=== PATIENT | female | born 1955 | race Caucasian/White ===

== ENCOUNTER 2018-03-06 09:40 | Emergency (ER) | payer OTHER ==
--- OUTSIDE RECORDS SUMMARY | 2018-03-06 09:43 | XMS REPORT | Clinical Summary ---
:1955 Author Organization [facility] Address [address] [place] [address] Care Team Providers Name Role Phone Barney Stanley MD Primary Care Provider Allergies Active Allergy Reactions Severity Noted Date Comments Iodinated Contrast- Oral And Rash Low 09/11/2016 Iv Dye Iodine Hives 06/19/2016 Cephalexin Hives, Shortness Of Breath High 06/19/2016 Latex Hives 09/11/2016 Levofloxacin Itching 10/09/2016 Penicillins Hives, Shortness Of Breath High 09/11/2016 Bupropion Hcl Itching 06/19/2016 Current Medications Prescription Sig. Disp. Refills Start Date End Date Status atorvastatin (LIPITOR) Take 20 mg by 05/24/2016 Active 20 MG tablet mouth nightly. CONTOUR NEXT STRIPS 06/19/2016 Active strip test strips CONTOUR NEXT EZ METER 06/19/2016 Active misc levothyroxine Take 75 mcg by Active (SYNTHROID, mouth every LEVOTHROID) 75 MCG morning. tablet aspirin (ECOTRIN) 81 Take 81 mg by Active MG enteric coated mouth daily. tablet furosemide (LASIX) 80 Take 20 mg by 08/03/2016 Active mg tablet mouth 2 (two) times a day. multivitamin with Take 1 tablet Active minerals tablet by mouth daily. CHOLECALCIFEROL, Take 1,000 mg Active VITAMIN D3, (VITAMIN by mouth daily. D3 ORAL) diphenhydrAMINE Take 25 mg by Active (BENADRYL) 25 mg mouth nightly tablet as needed for itching, allergies or sleep. INSULIN Inject 40 Units Active GLARGINE,HUM.REC.ANLOG under the skin (TOUJOSE PINTO SUBQ) daily. insulin lispro Inject 100 Active (HumaLOG) 100 unit/mL Units under the injection skin 3 (three) times a day before meals. folic acid (FOLVITE) 1 Take 1 mg by Active MG tablet mouth daily. ferrous sulfate 325 Take 325 mg by Active (65 FE) MG tablet mouth daily with breakfast. ondansetron (ZOFRAN) 8 Take 8 mg by Active MG tablet mouth every 8 (eight) hours as needed for nausea or vomiting. traMADol (ULTRAM) 50 Take 50 mg by Active mg tablet mouth every 6 (six) hours as needed for moderate pain. carvedilol (COREG) Take 6.25 mg by Active 6.25 MG tablet mouth 2 (two) times a day with meals. senna (SENOKOT) 8.6 mg Take 1 tablet 05/08/2017 Discontinued tablet by mouth daily. Active Problems Problem Noted Date Endometrial cancer 11/20/2016 Encounters Date Type Specialty Care Team Description 02/20/2018 Office Visit Gynecologic Oncology John Elizabeth MD History of endometrial cancer 10/24/2017 Office Visit Gynecologic Oncology John Elizabeth MD History of endometrial cancer 06/27/2017 Office Visit Gynecologic Oncology John Elizabeth MD Endometrial cancer 05/08/2017 Hospital Encounter General Surgery Wilmar Holguin Preoperative testing MD Mary 05/08/2017 Anesthesia Event General Surgery Roc Zuniga 05/08/2017 Procedure Pass General Surgery 05/08/2017 Surgery General Surgery Wilmar Holguin AVF CREATION MD Mary 04/30/2017 Hospital Encounter Radiology Wilmar Holguin MD 04/30/2017 Pre-Admit Testing Pre-Admission Wilmar Holguin Preoperative testing Appointment Testing MD Mary (Primary Dx) 04/30/2017 Ancillary Orders Pre-Admission Wilmar Holguin Preoperative testing Testing MD Mary after 03/05/2017 Family History Medical History Relation Name Comments Lung cancer Father Colon cancer Mother Heart disease Mother Relation Name Status Comments Father Mother Social History Tobacco Use Types Packs/Day Years Used Date Never Smoker Smokeless Tobacco: Never Used Alcohol Use Drinks/Week oz/Week Comments No Sex Assigned at Date Recorded Not on file Last Filed Vital Signs Vital Sign Reading Time Taken Blood Pressure 175/75 02/20/2018 11:39 AM CDT Pulse 84 02/20/2018 11:39 AM CDT Temperature 36.6 C (97.8 F) 05/08/2017 7:00 PM CDT Respiratory Rate 16 05/08/2017 7:10 PM CDT Oxygen Saturation 95% 05/08/2017 7:10 PM CDT Inhaled Oxygen Concentration - - Weight 145 kg (320 lb) 02/20/2018 11:39 AM CDT Height 162.6 cm (5' 4") 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 Body Mass Index 54.93 02/20/2018 11:39 AM CDT Plan of Treatment Date Type Specialty Care Team Description 07/24/2018 Office Visit Gynecologic Oncology John Elizabeth MD [address] [address] Health Maintenance Due Date Last Done Comments CERVICAL CANCER SCREENING 1974 BREAST CANCER SCREENING 2003 COLON CANCER SCREENING 2003 SHINGRIX VACCINE (#1) 2003 ZOSTER VACCINE 2013 PNEUMOCOCCAL POLYSACCHARIDE VACCINE AGE 65 AND OVER 2018 PNEUMOCOCCAL-13 2018 INFLUENZA VACCINE 05/01/2018 Implants Implanted Type Area Fur Dressing Supervisor Device Expiration Model / Identifier Date Serial / Lot Hemostat Absrbl 4x4in Surgicel Snow - [id number] Cardiovascular N/A: ETHICON US-EH 08/30/2018 208 / Implanted: 11/23/2016 (Quantity not on file) Implants N/A / [id number] Fibrin Sealant Patch Evarrest - [id number] Surgical N/A: ETHICON 2017 [id number] / Implanted: 11/24/2016 (Quantity not on file) Implants; N/A ENDO-SURGERY / Expanders; [id number] Extenders; Surgical Wires Procedures Procedure Name Priority Date/Time Associated Diagnosis Comments MD AN ELECTIVE Routine 05/08/2017 3:38 PM SUPRAGLOTTIC AIRWAY CDT Procedure Note - Roc Zuniga - 05/08/2017 3:38 PM CDT Airway Date/Time: 05/08/2017 3:18 PM Performed by: AKASH VASQUEZ Authorized by: AKASH VASQUEZ Location: OR Urgency: Elective Difficult Airway: No Anesthesiologist: AKASH VASQUEZ Other Anesthesia Staff: ROC ZUNIGA Performed by: other anesthesia staff Preoxygenated with 100% O2: Yes C-spine Precautions Maintained Throughout: Yes Final Airway Type: Supraglottic airway Final LMA: Unique LMA Size: 4 Number of Attempts at Approach: 1 LUE AVF CREATION 05/08/2017 3:00 PM CDT ESRD N18.5 Special Needs LATEX ALLERGY, after 03/05/2017 Results POC glucose (05/08/2017 6:55 PM) Component Value Ref Range POC glucose 133 (H) 65 - 99 mg/dL Comment: Meter ID: [id number] Rn Telephone Triage: Joann Muniz Specimen Performing Laboratory [facility] DEPARTMENT PATHOLOGY AND [facility] MEDICINE [id number] [place] [address] [place] [address] Type and screen (05/08/2017 12:11 PM) Component Value Ref Range ABO grouping O Rh type POS Antibody screen NEG Specimen Performing Laboratory Blood [facility] PATHOLOGY AND [address] [place] [address] Potassium level (05/08/2017 12:10 PM) Component Value Ref Range Potassium 4.9 3.5 - 5.0 mEq/L Specimen Performing Laboratory Plasma specimen [facility] PATHOLOGY AND [address] [place] [address] XR Chest 2 Vw (04/30/2017 3:00 PM) Specimen Performing Laboratory [facility] [address] [place] [address] Narrative EXAMINATION:XR CHEST 2 VW CLINICAL HISTORY:Z01.818 Encounter for other preprocedural examination, preop COMPARISON:September 11, 2016 LUNGS: Heart size is borderline but within normal limits. The mediastinum appears unremarkable. Pronounced hypertrophic changes of the spine are present. IMPRESSION: No acute findings are visualized. [id number] Procedure Note Hm Interface, Radiology Results Incoming - 04/30/2017 3:54 PM CDT EXAMINATION: XR CHEST 2 VW CLINICAL HISTORY: Z01.818 Encounter for other preprocedural examination, preop COMPARISON: September 11, 2016 LUNGS: Heart size is borderline but within normal limits. The mediastinum appears unremarkable. Pronounced hypertrophic changes of the spine are present. IMPRESSION: No acute findings are visualized. [id number] ECG 12 lead (04/30/2017 2:00 PM) Component Value Ref Range Ventricular rate 81 Atrial rate 81 MD interval 162 QRSD interval 106 QT interval 414 QTC interval 480 P axis 1 67 QRS axis 1 -4 T wave axis 22 EKG impression Normal sinus rhythm-Incomplete right bundle branch block-Borderline ECG-In automated comparison with ECG of 11-SEP-2016 17:19,-No significant change was found- Specimen Performing Laboratory [facility] [address] [place] [address] Estimated GFR (04/30/2017 1:19 PM) Component Value Ref Range GFR Non Af Amer 11 (A) mL/min/1.73 m2 GFR Af Amer 13 (A) mL/min/1.73 m2 Comment: Chronic kidney disease: <60 mL/min/1.73m2 Kidney failure: <15 mL/min/1.73m2 The estimated GFR is calculated from the IDMS-traceable Modification of Diet in Renal Disease Equation. The accuracy of the calculation is poor when the creatinine is normal. Calculated values >90 mL/min/1.73m2 are not reported. This equation has not been validated in children (<18 years), women, the elderly (>70 years), or ethnic groups other than Caucasians and Americans. Specimen Performing Laboratory Plasma specimen [facility] DEPARTMENT OF PATHOLOGY AND [facility] [id number] [place] [address] [place] [address] Partial thromboplastin time, activated (04/30/2017 1:19 PM) Component Value Ref Range PTT 28.0 23.0 - 36.0 sec Comment: PTT therapeutic range for unfractionated heparin is 61.0-112.0 seconds which corresponds to Anti-Xa 0.3-0.7 U/ml. Specimen Performing Laboratory Blood [facility] DEPARTMENT OF PATHOLOGY AND [facility] [id number] [place] [address] [place] [address] Prothrombin time with INR (04/30/2017 1:19 PM) Component Value Ref Range Prothrombin time 12.5 12.0 - 15.0 sec INR 0.9 Comment: The International Normalized Ratio (INR) is a therapeutic monitoring tool for patients who are stable on oral anticoagulant therapy. An INR of 2.0-3.0 is suggested for deep vein thrombosis/pulmonary embolism. Specimen Performing Laboratory Blood [facility] DEPARTMENT PATHOLOGY AND [facility] [id number] [place] [address] [place] [address] CBC with platelet and differential (04/30/2017 1:19 PM) Component Value Ref Range WBC 10.46 4.50 - 11.00 k/uL RBC 3.89 (L) 4.20 - 5.50 m/uL HGB 11.7 (L) 12.0 - 16.0 g/dL HCT 36.4 (L) 37.0 - 47.0 % MCV 93.6 82.0 - 100.0 fL MCH 30.1 27.0 - 34.0 pg MCHC 32.1 31.0 - 37.0 g/dL RDW - SD 46.9 37.0 - 55.0 fL MPV 12.9 8.8 - 13.2 fL Platelet count 215 150 - 400 k/uL Nucleated RBC 0.00 /100 WBC Neutrophils 67.3 39.0 - 69.0 % Lymphocytes 23.6 (L) 25.0 - 45.0 % Monocytes 5.9 0.0 - 10.0 % Eosinophils 2.0 0.0 - 5.0 % Basophils 0.7 0.0 - 1.0 % Immature granulocytes 0.5Comment: "Immature granulocytes" 0.0 - 1.0 % (promyelocytes, myelocytes, metamyelocytes) Specimen Performing Laboratory Blood [facility] DEPARTMENT OF PATHOLOGY AND GENOMIC MEDICINE [address] [place] [address] Basic metabolic panel (04/30/2017 1:19 PM) Component Value Ref Range Sodium 140 135 - 148 mEq/L Potassium 4.1 3.5 - 5.0 mEq/L Chloride 94 (L) 98 - 112 mEq/L CO2 32 (H) 24 - 31 mEq/L Anion gap 14 7 - 15 mEq/L Comment: Starting from December , anion gap calculation no longer incorporates potassium. Please note the change. BUN 75 (H) 8 - 23 mg/dL Creatinine 4.1 (H) 0.5 - 0.9 mg/dL Glucose 155 (H) 65 - 99 mg/dL Calcium 10.1 8.8 - 10.2 mg/dL Specimen Performing Laboratory Plasma specimen [facility] DEPARTMENT OF PATHOLOGY AND [facility] [address] [place] [address] after 03/05/2017 Insurance Payer Benefit Plan / Group Subscriber ID Type Phone Address [facility] O Home: [address] [facility] y [phone] [place], [address] [place] [phone]
--- NOTE | 2018-03-06 11:41 | ER ---
Nurse's Notes [facility] Name: Melissa Doherty Age: 63 yrs Sex: Female : 1955 Arrival Date: 03/06/2018 Time: 09:42 Bed 13 Private MD: Barney Stanley E Diagnosis: Urticaria, unspecified Presentation: 03/06 10:00 Presenting complaint: Patient states: Rash all over body that started on Sunday. ss Patient reports rash is itchy and denies any changes in soap or medication. Patient denies SOB. In NAD at this time. Able to speak clearly with no tachypnea. Transition of care: patient was not received from another setting of care. Onset of symptoms was March 06, 2018. Risk Assessment: Do you want to hurt yourself or someone else? Patient reports no desire to harm self or others. Care prior to arrival: None. 10:00 Method Of Arrival: Ambulatory ss 10:00 Acuity: FRANKLIN 3 ss 11:00 Initial Sepsis Screen: Does the patient meet any 2 criteria? No. Patient's initial sg sepsis screen is negative. Does the patient have a suspected source of infection? No. Patient's initial sepsis screen is negative. Triage Assessment: 10:02 General: Appears in no apparent distress. comfortable, Behavior is calm, cooperative, ss appropriate for age. Pain: Denies pain. Neuro: Level of Consciousness is awake, alert, obeys commands, Oriented to person, place, time, situation, Appropriate for age. Respiratory: Airway is patent Respiratory effort is even, unlabored, Respiratory pattern is regular, symmetrical. Derm: Skin is intact, is healthy with good turgor, Skin is pink, warm \T\ dry. normal, Rash noted that is itchy, red, on abdomen, right arm, left arm, right leg and left leg. Historical: - Allergies: 10:02 Iodinated Contrast Media - IV Dye; ss 10:02 Iodine; ss 10:02 PENICILLINS; ss - Home Meds: 10:02 Aspirin EC 81 mg every other day Oral [Active]; Coreg 6.25 mg Oral tab 1 tab every 12 ss hours [Active]; Flonase Nasal [Active]; humalog 20 units [Active]; Lipitor 20 mg Oral tab 1 tab once daily [Active]; Synthroid 75 mcg Oral tab 1 tab once daily [Active]; toujeo 50 units at bedtime [Active]; - PMHx: 10:02 Diabetes - IDDM; ESRD; Hypertension; Hypothyroidism; ss - PSHx: 10:02 Cholecystectomy; ; ANKLE RECONSTRUCTION; LEFT KNEE; Tonsillectomy; Adenoids; ss Appendectomy; DIALYSIS CATHETER; - Immunization history:: Adult Immunizations up to date. - Social history:: Smoking status: Patient/guardian denies using tobacco. - Ebola Screening: : Patient negative for fever greater than or equal to 101.5 degrees Fahrenheit, and additional compatible Ebola Virus Disease symptoms Patient denies exposure to infectious person Patient denies travel to an Ebola-affected area in the 21 days before illness onset No symptoms or risks identified at this time. Screenin:00 Abuse screen: Denies threats or abuse. Denies injuries from another. Nutritional sg screening: No deficits noted. Tuberculosis screening: No symptoms or risk factors identified. Never had TB. Fall Risk None identified. Assessment: 11:00 General: Appears in no apparent distress. comfortable, well groomed, well developed, sg well nourished, Behavior is calm, cooperative, appropriate for age. Pain: Denies pain. Neuro: No deficits noted. Cardiovascular: Heart tones S1 S2 present Capillary refill is brisk in bilateral fingers Chest pain is denied. Respiratory: No deficits noted. GI: No deficits noted. GI: No signs and/or symptoms were reported involving the gastrointestinal system. : No deficits noted. No signs and/or symptoms were reported regarding the genitourinary system. EENT: No signs and/or symptoms were reported regarding the EENT system. Derm: Skin is pink, warm \T\ dry. Rash noted that is red, raised, on right leg and left arm and right arm and abdomen and left leg. Musculoskeletal: No signs and/or symptoms reported regarding the musculoskeletal system. Vital Signs: 10:02 BP 154 / 45; Pulse 89; Resp 19; Temp 97.7; Pulse Ox 91% on R/A; Weight 145.15 kg; ss Height 5 ft. 5 in. (165.10 cm); 10:02 Body Mass Index 53.25 (145.15 kg, 165.10 cm) ED Course: 09:42 Patient arrived in ED. as 09:45 Barney Stanley MD is Private Physician. as 10:01 Triage completed. ss 10:02 Arm band placed on right wrist. Patient placed in waiting room, Patient notified of ss wait time. 10:43 Dmitriy Rodriguez PA is PHCP. cp 10:43 Hola Patel MD is Attending Physician. cp 10:45 Nicholas Miles, RN is Primary Nurse. sg 11:00 Patient has correct armband on for positive identification. Bed in low position. Call sg light in reach. Side rails up X2. Pulse ox on. NIBP on. 11:00 No provider procedures requiring assistance completed. Patient did not have IV access sg during this emergency room visit. 11:37 Barney Stanley MD is Referral Physician. cp Administered Medications: 11:50 Drug: Pepcid 20 mg Route: PO; sg 12:01 Drug: Benadryl 50 mg Route: PO; sg Point of Care Testing: Blood Glucose: 11:13 Blood Glucose: 218 mg/dL; sg Ranges: Outcome: 11:40 Discharge ordered by MD. cp 11:50 Discharged to home via wheelchair, with family. sg 11:50 Condition: good 11:50 Discharge instructions given to patient, Instructed on discharge instructions, follow up and referral plans. medication usage, safety practices, Demonstrated understanding of instructions, follow-up care, medications, Prescriptions given X 2. 12:01 Patient left the ED. sg Signatures: Nicholas Miles, RN RN Nilsa Dickinson Shelby, RN RN Dmitriy Rodriguez PA PA cp Corrections: (The following items were deleted from the chart) 10:04 10:00 Presenting complaint: Patient states: Rash all over body that started on Sunday. ss Patient reports rash is itchy and denies any changes in soap or medication ss
--- NOTE | 2018-03-06 11:41 | EDPHYS ---
Physician Documentation [facility] Name: Melissa Doherty Age: 63 yrs Sex: Female : 1955 Arrival Date: 03/06/2018 Time: 09:42 Bed 13 Private MD: Barney Stanley E ED Physician Hola Patel HPI: 03/06 10:50 This 63 yrs old Female presents to ER via Ambulatory with complaints of Rash. cp 10:50 The patient's rash thought to be caused by an unknown cause. The rash is located on the cp body diffusely. The rash can be described as papular, urticarial. Onset: The symptoms/episode began/occurred 2 day(s) ago. Associated signs and symptoms: Pertinent positives: burning sensation, itching, Pertinent negatives: difficulty breathing, fever, swelling of lips, swelling of throat, swelling of tongue, wheezing. Severity of symptoms: in the emergency department the symptoms are unchanged despite home interventions. Treatment given at home: Benadryl. The patient has not experienced similar symptoms in the past. Historical: - Allergies: 10:02 Iodinated Contrast Media - IV Dye; ss 10:02 Iodine; ss 10:02 PENICILLINS; ss - Home Meds: 10:02 Aspirin EC 81 mg every other day Oral [Active]; Coreg 6.25 mg Oral tab 1 tab every 12 ss hours [Active]; Flonase Nasal [Active]; humalog 20 units [Active]; Lipitor 20 mg Oral tab 1 tab once daily [Active]; Synthroid 75 mcg Oral tab 1 tab once daily [Active]; toujeo 50 units at bedtime [Active]; - PMHx: 10:02 Diabetes - IDDM; ESRD; Hypertension; Hypothyroidism; ss - PSHx: 10:02 Cholecystectomy; ; ANKLE RECONSTRUCTION; LEFT KNEE; Tonsillectomy; Adenoids; ss Appendectomy; DIALYSIS CATHETER; - Immunization history:: Adult Immunizations up to date. - Social history:: Smoking status: Patient/guardian denies using tobacco. - Ebola Screening: : Patient negative for fever greater than or equal to 101.5 degrees Fahrenheit, and additional compatible Ebola Virus Disease symptoms Patient denies exposure to infectious person Patient denies travel to an Ebola-affected area in the 21 days before illness onset No symptoms or risks identified at this time. ROS: 11:00 Constitutional: Negative for body aches, chills, fever, poor PO intake. cp 11:00 Eyes: Negative for injury, pain, redness, and discharge. cp 11:00 ENT: Negative for drainage from ear(s), ear pain, sore throat, difficulty swallowing, difficulty handling secretions. 11:00 Cardiovascular: Negative for chest pain, edema, palpitations. 11:00 Respiratory: Negative for cough, shortness of breath, wheezing. 11:00 Abdomen/GI: Negative for abdominal pain, nausea, vomiting, and diarrhea, constipation, black/tarry stool, rectal bleeding. 11:00 Skin: Positive for rash, diffusely. 11:00 Neuro: Negative for altered mental status, headache, weakness. 11:00 All other systems are negative. Exam: 11:03 Constitutional: The patient appears in no acute distress, alert, awake, cp non-diaphoretic, non-toxic, well developed, well nourished, obese. 11:03 Head/Face: Normocephalic, atraumatic. cp 11:03 Eyes: Periorbital structures: appear normal, Conjunctiva: normal, no exudate, no injection, Sclera: no appreciated abnormality, Lids and lashes: appear normal, bilaterally. 11:03 ENT: External ear(s): are unremarkable, Ear canal(s): are normal, clear, TM's: bulging, is not appreciated, bilaterally, dullness, bilaterally, erythema, is not appreciated, bilaterally, Nose: is normal, Mouth: Lips: moist, Oral mucosa: pink and intact, moist, Posterior pharynx: is normal, airway is patent, no erythema, no exudate, Voice: is normal. 11:03 Neck: ROM/movement: is normal, is supple, no meningismus, no nuchal rigidity, Lymph nodes: no appreciated lymphadenopathy. 11:03 Chest/axilla: Palpation: is normal, no crepitus, no tenderness. 11:03 Cardiovascular: Rate: normal, Edema: is not appreciated, JVD: is not appreciated. 11:03 Respiratory: the patient does not display signs of respiratory distress, Respirations: normal, no use of accessory muscles, no retractions, no splinting, no tachypnea, Breath sounds: are clear throughout, no decreased breath sounds, no stridor, no wheezing. 11:03 Abdomen/GI: Exam negative for discomfort, distension, guarding, Inspection: obese 11:03 Skin: abscess, not appreciated, cellulitis, is not appreciated, rash a moderate rash is noted, rash can be described as papular, raised, urticarial, on the back and upper armpits and bilateral upper and lower extremities. 11:03 Neuro: Orientation: to person, place \T\ time. Mentation: lucid, able to follow commands. Vital Signs: 10:02 BP 154 / 45; Pulse 89; Resp 19; Temp 97.7; Pulse Ox 91% on R/A; Weight 145.15 kg; ss Height 5 ft. 5 in. (165.10 cm); 10:02 Body Mass Index 53.25 (145.15 kg, 165.10 cm) ss MDM: 10:45 Patient medically screened. cp 11:05 Differential diagnosis: impetigo, varicella, allergic reaction, parasite infection, cp cellulitis. 11:38 Data reviewed: vital signs, nurses notes, and as a result, I will discharge patient. cp 11:38 Counseling: I had a detailed discussion with the patient and/or guardian regarding: the cp historical points, exam findings, and any diagnostic results supporting the discharge/admit diagnosis, the need for outpatient follow up, a family practitioner, to return to the emergency department if symptoms worsen or persist or if there are any questions or concerns that arise at home. Response to treatment: the patient's symptoms have mildly improved after treatment, and as a result, I will discharge patient. 03/06 10:57 Order name: Accucheck Blood Glucose; Complete Time: 11:13 cp Administered Medications: 11:50 Drug: Pepcid 20 mg Route: PO; sg 12:01 Drug: Benadryl 50 mg Route: PO; sg Point of Care Testing: Blood Glucose: 11:13 Blood Glucose: 218 mg/dL; sg Ranges: Critical Glucose Levels:Adult <50 mg/dl or >400 mg/dl <40 mg/dl or >180 mg/dl Disposition: 16:19 Co-signature as Attending Physician, Hola Patel MD. rn Disposition: 03/06/18 11:40 Discharged to Home. Impression: Urticaria, unspecified. - Condition is Stable. - Discharge Instructions: Hives. - Prescriptions for Pepcid 20 mg Oral Tablet - take 1 tablet by ORAL route every 12 hours for 5 days; 10 tablet. Triamcinolone Acetonide 0.5 % Topical Cream - apply 1 application by TOPICAL route 2 times per day for 1 week apply to areas of rash except face as directed; 1 tube. Medrol (Hugo) 4 mg Oral Tablets, Dose Pack - take 1 tablet by ORAL route as directed - follow package instructions; 1 packet. - Medication Reconciliation Form, Thank You Letter, Antibiotic Education, Prescription Opioid Use form. - Follow up: Barney Stanley MD; When: 1 - 2 days; Reason: Recheck today's complaints. - Problem is new. - Symptoms have improved. Signatures: Nicholas Miles RN RN sg Hola Patel MD MD rn Smirch, Shelby, RN RN ss Dmitriy Rodriguez PA PA cp Corrections: (The following items were deleted from the chart) 11:01 10:59 ED course: VSS. Pain markedly improved. Patient observed communicating on cell cp phone and in no acute distress. Reexamination of abdomen, no tenderness to palpation noted. cp 12:01 11:40 03/06/2018 11:40 Discharged to Home. Impression: Urticaria, unspecified. sg Condition is Stable. Forms are Medication Reconciliation Form, Thank You Letter, Antibiotic Education, Prescription Opioid Use. Follow up: Barney Stanley; When: 1 - 2 days; Reason: Recheck today's complaints. Problem is new. Symptoms have improved. cp
[2018-03-06] MEDS ORDERED: FAMOTIDINE 20 MG TAB ONE (11:55)
[2018-03-06] MEDS ORDERED: DIPHENHYDRAMINE 25 MG TAB/CAP ONE (11:55)
== END 2018-03-06 12:01 | disposition home or self-care (01) ==
LOC: ER 09:40
DX: L50.9 Urticaria, unspecified (principal); E03.9 Hypothyroidism, unspecified; I12.0 Hypertensive chronic kidney disease with stage 5 chronic kidney disease or end stage renal disease; E11.22 Type 2 diabetes mellitus with diabetic chronic kidney disease; N18.6 End stage renal disease; Z99.2 Dependence on renal dialysis; Z79.4 Long term (current) use of insulin
CPT/HCPCS: 82962; 99283

== ENCOUNTER 2021-04-02 22:35 | Emergency (ER) | payer OTHER, SELFPAY ==
--- OUTSIDE RECORDS SUMMARY | 2021-04-02 22:43 | XMS REPORT | Continuity of Care Document ---
:1955 Author Organization [facility] Address [address] [place] [address] [address] [place] [address] Care Team Providers Name Role Phone FARACH Attending Clinician Unavailable JAY Attending Clinician Unavailable KARISSA Attending Clinician Unavailable Problems This patient has no known problems. Allergies, Adverse Reactions, Alerts This patient has no known allergies or adverse reactions. Medications This patient has no known medications. Procedures This patient has no known procedures. Encounters Start End Encounter Admission Attending Care Care Encounter Source Date/Time Date/Time Type Type Clinicians Facility Department ID 2020-03-01 2020-03-02 Outpatient [facility] [id number] [address] [place] [address] 00:00:00 00:00:00 MENDEZ [address] 2020-03-01 2020-03-02 Outpatient [facility] [id number] [address] [place] 00:00:00 00:00:00 MENDEZ [address] 2020-03-01 2020-03-01 Outpatient [facility] [id number] [address] [place] 00:00:00 00:00:00 MENDEZ [address] 2020-03-01 2020-03-01 Outpatient [facility] [id number] [address] [place] 00:00:00 00:00:00 MENDEZ [address] 2020-03-01 2020-03-01 Outpatient [facility] [id number] [address] [place] 00:00:00 00:00:00 MENDEZ [address] 2020-02-27 2020-02-28 Outpatient [facility] [id number] 0[address] [place] 00:00:00 00:00:00 MENDEZ [address] 2020-02-27 2020-02-27 Outpatient [facility] [id number] [address] [place] 00:00:00 00:00:00 MENDEZ [address] 2020-02-25 2020-02-25 Outpatient FARACH, [facility] [id number] [address] [place] 00:00:00 00:00:00 MENDEZ [address] 2020-02-25 2020-02-25 Outpatient FARACH, [facility] [id number] 0[address] [place] 00:00:00 00:00:00 MENDEZ [address] 2020-02-20 2020-02-20 Outpatient FARACH, [facility] [id number] 0[address] [place] 00:00:00 00:00:00 MENDEZ [address] 2020-02-20 2020-02-20 Outpatient JAY, [facility] [id number] 0[address] [place] 00:00:00 00:00:00 OLIVER [address] 2020-02-18 2020-02-18 Outpatient FARACH, [facility] [id number] 0[address] [place] 00:00:00 00:00:00 MENDEZ [address] 2020-02-18 2020-02-18 Outpatient FARACH, [facility] [id number] 0[address] [place] 00:00:00 00:00:00 MENDEZ [address] [facility] 2020-02-16 2020-02-16 Outpatient [facility] [id number] [address] [place] 00:00:00 00:00:[address] 2020-02-13 2020-02-13 Outpatient [facility] [id number] [address] [place] 00:00:00 00:00:[address] 2020-02-12 2020-02-12 Outpatient [facility] [id number] [address] [place] 00:00:00 00:00:[address] 2020-02-12 2020-02-12 Outpatient FARACH, [facility] [id number] [address] [place] 00:00:00 00:00:00 MENDEZ [address] 2020-02-12 2020-02-12 Outpatient FARACH, [facility] [id number] 057 [place] 00:00:00 00:00:00 MENDEZ [address] 2020-02-11 2020-02-11 Outpatient [facility] [id number] [address] [place] 00:00:00 00:00:[address] 2020-02-10 2020-02-10 Outpatient [facility] [id number] [address] [place] 00:00:00 00:00:[address] 2020-02-10 2020-02-10 Outpatient FARACH, [facility] [id number] [address] [place] 00:00:00 00:00:00 MENDEZ [address] 2020-02-05 2020-02-05 Outpatient FARACH, [facility] [id number] [address] [place] 00:00:00 00:00:00 MENDEZ [address] [facility] 2020-02-04 2020-02-04 Outpatient [facility] [id number] [address] [place] 00:00:00 00:00:[address] 2020-02-03 2020-02-03 Outpatient [facility] [id number] [address] [place] 00:00:00 00:00:[address] 2020-02-02 2020-02-02 Outpatient [facility] [id number] [address] [place] 00:00:00 00:00:[address] 2020-01-30 2020-01-31 Outpatient FARACH, [facility] [id number] [address] [place] 00:00:00 00:00:00 MENDEZ [address] 2020-01-30 2020-01-30 Outpatient [facility] [id number] [address] [place] 00:00:00 00:00:[address] 2020-01-29 2020-01-29 Outpatient [facility] [id number] [address] [place] 00:00:00 00:00:[address] 2020-01-29 2020-01-29 Outpatient STEPHIEACH, [facility] [id number] [address] [place] 00:00:00 00:00:00 MENDEZ [address] 2020-01-28 2020-01-28 Outpatient [facility] [id number] [address] [place] 00:00:00 00:00:[address] 2020-01-27 2020-01-27 Outpatient [facility] [id number] [address] [place] 00:00:00 00:00:[address] 2020-01-23 2020-01-23 Outpatient [facility] [id number] [address] [place] 00:00:00 00:00:[address] 2020-01-22 2020-01-23 Outpatient FARACH, [facility] [id number] [place] 00:00:00 00:00:00 MENDEZ [address] 2020-01-22 2020-01-22 Outpatient STEPHIEACH, [facility] [id number] [address] [place] 00:00:00 00:00:00 MENDEZ [address] [facility] 2020-01-21 2020-01-21 Outpatient [facility] [id number] [address] [place] 00:00:00 00:00:[address] 2020-01-20 2020-01-20 Outpatient [facility] [id number] [address] [place] 00:00:00 00:00:[address] 2020-01-19 2020-01-19 Outpatient [facility] [id number] [address] [place] 00:00:00 00:00:[address] 2020-01-16 2020-01-16 Outpatient [facility] [id number] [address] [place] 00:00:00 00:00:[address] 2020-01-15 2020-01-15 Outpatient [facility] [id number] [address] [place] 00:00:00 00:00:[address] 2020-01-15 2020-01-15 Outpatient FARACH, [facility] [id number] [address] [place] 00:00:00 00:00:00 MENDEZ [address] 2020-01-14 2020-01-14 Outpatient [facility] [id number] [address] [place] 00:00:00 00:00:[address] 2020-01-13 2020-01-13 Outpatient FARACH, [facility] [id number] [address] [place] 00:00:00 00:00:00 MENDEZ [address] 2020-01-01 2020-01-01 Outpatient FARACH, [facility] [id number] [place] 00:00:00 00:00:00 MENDEZ [address] 2019-12-31 2019-12-31 Outpatient FARACH, [facility] [id number] [address] [place] 00:00:00 00:00:00 MENDEZ [address] 2019-12-22 2019-12-22 Outpatient FARACH, [facility] [id number] [address] [place] 00:00:00 00:00:00 MENDEZ [address] 2019-12-22 2019-12-22 Outpatient FARACH, [facility] [id number] [address] [place] 00:00:00 00:00:00 MENDEZ [address] 2019-12-22 2019-12-22 Outpatient FARACH, [facility] [id number] [address] [place] 00:00:00 00:00:00 MENDEZ [address] 2019-12-16 2019-12-16 Outpatient KARISSA, ALEXA [facility] [id number] [place] 00:00:00 00:00:[address] 2019-11-24 2019-11-24 Outpatient ALEXA HANCOCK [facility] [id number] [place] 00:00:00 00:00:[address] Results This patient has no known results.
[2021-04-03 00:08] LABS: Absolute Lymphocytes (CBC) 0.3 K/uL (0.7-4.9); Basophils % 0.1 % (0-1.3)
[2021-04-03 00:17] LABS: Hematocrit 30.1 % (36.0-45.0); Lymphocytes % 1.1 % (15.3-44.8); MPV 8.9 fL (7.6-11.3); RBC Red Blood Cell Count 3.07 M/uL (3.86-4.86)
[2021-04-03] MEDS ORDERED: NA CHLORIDE 0.9% 2,000 ML ONE (00:18)
[2021-04-03] MEDS ORDERED: ONDANSETRON 4 MG/2 ML VIAL ONE (00:18)
[2021-04-03 00:37] LABS: Anisocytosis 2+; Blood Morphology Comment NOTED (NOT SEEN); Hypochromasia 1+; Macrocytosis 1+; Platelet Estimate INCR; Platelets, Giant FEW; Polychromasia 1+
[2021-04-03 00:45] LABS: Albumin 2.6 g/dL (3.4-5.0); Bilirubin Direct 0.3 mg/dL (0-0.2); Bilirubin Total 0.6 mg/dL (0.2-1.0); Potassium 3.9 mmol/L (3.5-5.1); Protein, Total 6.9 g/dL (6.4-8.2)
[2021-04-03] MEDS ORDERED: PROMETHAZINE INJ 25 MG/ML AMP ONE (01:13)
[2021-04-03] MEDS ORDERED: METRONIDAZOLE 500mg IVPB 500 MG/100 ML BAG IV ONE (04:18)
[2021-04-03] MEDS ORDERED: FENTANYL CITR 100 MCG/2 ML ONE (04:38)
--- NOTE | 2021-04-03 05:49 | EDPHYS ---
Physician Documentation [facility] Name: Melissa Doherty Age: 66 yrs Sex: Female : 1955 Arrival Date: 04/02/2021 Time: 22:47 Bed 20 Private MD: ED Physician Pato Ramirez HPI: 04/03 02:49 This 66 yrs old Female presents to ER via EMS with complaints of Abdominal pkl Pain. 02:49 The patient presents with abdominal pain that is diffuse. Onset: The symptoms/episode pkl began/occurred 2 week(s) ago, and became worse today. Associated signs and symptoms: Pertinent positives: nausea and vomiting. Historical: - Allergies: 04/02 23:00 Iodinated Contrast Media - IV Dye; zb 23:00 Iodine; zb 23:00 PENICILLINS; zb 04/03 04:02 Keflex; em 04:02 Levaquin; em - Home Meds: 04/02 23:00 aspirin 81 mg oral cpDR [Active]; Coreg 6.25 mg Oral tab 1 tab every 12 hours [Active]; zb Flonase Nasal [Active]; humalog 20 units [Active]; Lipitor 20 mg Oral tab 1 tab once daily [Active]; Synthroid 75 mcg Oral tab 1 tab once daily [Active]; toujeo 50 units at bedtime [Active]; - PMHx: 23:00 Diabetes - IDDM; ESRD; Hypertension; Hypothyroidism; zb - PSHx: 23:00 Tonsillectomy; Appendectomy; Total abdominal hysterectomy; Cholecystectomy; zb - Immunization history:: Adult Immunizations up to date, Client reports receiving the 2nd dose of the Covid vaccine. - Social history:: Smoking status: Patient denies any tobacco usage or history of. ROS: 04/03 02:49 Eyes: Negative for injury, pain, redness, and discharge, ENT: Negative for injury, pkl pain, and discharge, Neck: Negative for injury, pain, and swelling, Cardiovascular: Negative for chest pain, palpitations, and edema, Respiratory: Negative for shortness of breath, cough, wheezing, and pleuritic chest pain. Abdomen/GI: Positive for abdominal pain, nausea and vomiting, of the right upper quadrant, left upper quadrant, right lower quadrant and left lower quadrant. Back: Negative for acute changes. : Negative for urinary symptoms. MS/extremity: Negative for acute changes. Skin: Negative for rash. Neuro: Negative for altered mental status, loss of consciousness. Exam: 02:49 Head/Face: Normocephalic, atraumatic. Eyes: Pupils equal round and reactive to light, pkl extra-ocular motions intact. Lids and lashes normal. Conjunctiva and sclera are non-icteric and not injected. Cornea within normal limits. Periorbital areas with no swelling, redness, or edema. ENT: Nares patent. No nasal discharge, no septal abnormalities noted. Tympanic membranes are normal and external auditory canals are clear. Oropharynx with no redness, swelling, or masses, exudates, or evidence of obstruction, uvula midline. Mucous membranes moist. Neck: Trachea midline, no thyromegaly or masses palpated, and no cervical lymphadenopathy. Supple, full range of motion without nuchal rigidity, or vertebral point tenderness. No Meningismus. Chest/axilla: Normal chest wall appearance and motion. Nontender with no deformity. No lesions are appreciated. Cardiovascular: Regular rate and rhythm with a normal S1 and S2. No gallops, murmurs, or rubs. Normal PMI, no JVD. No pulse deficits. Respiratory: Lungs have equal breath sounds bilaterally, clear to auscultation and percussion. No rales, rhonchi or wheezes noted. No increased work of breathing, no retractions or nasal flaring. 02:49 Abdomen/GI: Bowel sounds: normal, Palpation: moderate abdominal tenderness, in the right upper quadrant, left upper quadrant, right lower quadrant and left lower quadrant. 02:49 Back: Exam negative for acute changes. 02:49 : Exam negative for acute changes. 02:49 Musculoskeletal/extremity: Exam is negative for acute changes. 02:49 Skin: Exam negative for rash. 02:49 Neuro: Orientation: is normal, Mentation: is normal, Cranial nerves: grossly normal, Motor: is normal. Vital Signs: 04/02 22:56 BP 94 / 48; Pulse 96; Resp 20; Temp 99.9; Pulse Ox 88% on R/A; Weight 148 kg; Height 5 zb ft. 5 in. (165.10 cm); Pain 8/10; 23:15 BP 108 / 34; Pulse 95; Resp 23; Pulse Ox 94% on 2 lpm NC; zb 04/03 02:24 BP 97 / 48; Pulse 93; Resp 22; Pulse Ox 95% on 2 lpm NC; em 04:02 BP 102 / 48; Pulse 97; Resp 24; Pulse Ox 94% on 2 lpm NC; em 04:33 Temp 98.2(O); em 05:08 BP 106 / 38; Pulse 89; Resp 18; Pulse Ox 94% on 2 lpm NC; em 04/02 22:56 Body Mass Index 54.30 (148.00 kg, 165.10 cm) zb MDM: 04/02 22:49 Patient medically screened. pkl 04/03 03:05 Data reviewed: vital signs, nurses notes, lab test result(s), EKG, radiologic studies, pkl CT scan, plain films. ED course: Patient lactate 3,6. Patient not given IV Fluid at 30 cc/kg due to her CKD ( Cr 5.1 and GFR 8 ). 05:45 ED course: Talked to Dr. Beckman, transfer to [facility]. pkl 04/02 23:20 Order name: Basic Metabolic Panel; Complete Time: 02:48 pkl 04/02 23:20 Order name: CBC with Diff; Complete Time: 02:48 pkl 04/02 23:20 Order name: Hepatic Function; Complete Time: 02:48 pkl 04/02 23:20 Order name: Lipase; Complete Time: 02:48 pkl 04/02 23:21 Order name: Lactate; Complete Time: 02:48 pkl 04/03 00:20 Order name: Manual Differential; Complete Time: 02:48 EDMS 04/02 23:28 Order name: Abdomen ; Complete Time: 19:09 EDMS 04/03 03:44 Order name: Lactate Sepsis 2 HR Follow-up; Complete Time: 05:45 EDMS 04/03 05:12 Order name: SARS-COV-2 RT PCR; Complete Time: 05:45 EDMS 04/02 23:20 Order name: IV Saline Lock; Complete Time: 00:03 pkl 04/02 23:20 Order name: Labs collected and sent; Complete Time: 00:03 pkl Administered Medications: 00:03 Drug: NS 0.9% 1000 ml Route: IV; Rate: 1000 ml; Site: right antecubital; zb 00:03 Drug: NS 0.9% 1000 ml Route: IV; Rate: 125 ml/hr; Site: right antecubital; zb 00:03 Drug: Zofran (Ondansetron) 4 mg Route: IVP; Site: right antecubital; zb 00:50 Follow up: Response: No adverse reaction em 00:58 Drug: Phenergan (promethazine) 12.5 mg Route: IVP; Site: right antecubital; em 01:20 Follow up: Response: No adverse reaction; Marked relief of symptoms; Nausea is decreasedem 04:03 Drug: Flagyl (metroNIDAZOLE) 500 mg Volume: 100 ml; Route: IVPB; Rate: 200 ml/hr; em Infused Over: 30 mins; Site: right antecubital; 04:20 Drug: fentaNYL (PF) 25 mcg Route: IVP; Site: right antecubital; em 05:52 Drug: Clindamycin 600 mg Route: IVPB; Infused Over: 30 mins; Site: right antecubital; ak2 Disposition Summary: 04/03/21 05:49 Transfer Ordered Transfer Location: [facility] pkl Reason: Higher level of care pkl Condition: Fair pkl Problem: new pkl Symptoms: are unchanged pkl Accepting Physician: Dr. Beckman(04/03/21 07:47) ll1 Diagnosis - Acute diverticulitis. Perforated bowel. Sepsis. ESRD pkl Forms: - Medication Reconciliation Form pkl - SBAR form pkl Signatures: Dispatcher [employer] EDPato Griffin MD MD pkl Mikhail Goodrich RN RN em Lewis, Lynsay, RN RN ll1 Poppy Hand RN RN zb Kapolka, Anthony ak2 Corrections: (The following items were deleted from the chart) 04/02 23:28 23:21 Abdomen Pelvis W Con+CT.RAD.BRZ ordered. EDMS EDMS 04/03 04:19 04:11 CORONAVIRUS+MR.LAB.BRZ ordered. EDMS EDMS 07:47 05:49 Dr. Beckman pkl ll1
--- NOTE | 2021-04-03 05:49 | ER ---
Nurse's Notes [facility] Name: Melissa Doherty Age: 66 yrs Sex: Female : 1955 Arrival Date: 04/02/2021 Time: 22:47 Bed 20 Private MD: Diagnosis: Acute diverticulitis. Perforated bowel. Sepsis. ESRD Presentation: 04/02 22:56 Chief complaint: EMS states: patient called from home c/o of abdominal pain RUQ zb localized off and on for about a couple of week states that it has going progressive worse since yesterday . + nausea. no vomiting today. patient states she vomited yesterday. Pt is current stating she is has been having some chest pain as well. Coronavirus screen: Client presents with at least one sign or symptom that may indicate coronavirus-19. Standard/surgical mask placed on the client. Provider contacted for isolation considerations. Ebola Screen: No symptoms or risks identified at this time. Initial Sepsis Screen: Does the patient meet any 2 criteria? No. Patient's initial sepsis screen is negative. Does the patient have a suspected source of infection? No. Patient's initial sepsis screen is negative. Risk Assessment: Do you want to hurt yourself or someone else? Patient reports no desire to harm self or others. Onset of symptoms was April 02, 2021. 22:56 Acuity: FRANKLIN 2 zb 22:56 Method Of Arrival: EMS: [facility] zb Triage Assessment: 23:02 General: Appears in no apparent distress. uncomfortable, obese, Behavior is calm, zb cooperative. Pain: Complains of pain in chest and right upper quadrant Pain does not radiate. Pain currently is 8 out of 10 on a pain scale. Quality of pain is described as aching, pressure, tender, Pain began 1 day ago. Is intermittent, Alleviated by medications. Neuro: No deficits noted. Level of Consciousness is awake, alert, obeys commands, Oriented to person, place, time, situation. Cardiovascular: Capillary refill < 3 seconds Patient's skin is warm and dry. Respiratory: Airway is patent Respiratory effort is labored, Respiratory pattern is tachypnea. GI: Abdomen is round obese, Bowel sounds present X 4 quads. Abdomen is tender to palpation in right upper quadrant Reports nausea, vomiting. Derm: Skin is intact, is healthy with good turgor, Skin is dry, Skin is pale. Musculoskeletal:. Historical: - Allergies: 23:00 Iodinated Contrast Media - IV Dye; zb 23:00 Iodine; zb 23:00 PENICILLINS; zb 04/03 04:02 Keflex; em 04:02 Levaquin; em - Home Meds: 04/02 23:00 aspirin 81 mg oral cpDR [Active]; Coreg 6.25 mg Oral tab 1 tab every 12 hours [Active]; zb Flonase Nasal [Active]; humalog 20 units [Active]; Lipitor 20 mg Oral tab 1 tab once daily [Active]; Synthroid 75 mcg Oral tab 1 tab once daily [Active]; toujeo 50 units at bedtime [Active]; - PMHx: 23:00 Diabetes - IDDM; ESRD; Hypertension; Hypothyroidism; zb - PSHx: 23:00 Tonsillectomy; Appendectomy; Total abdominal hysterectomy; Cholecystectomy; zb - Immunization history:: Adult Immunizations up to date, Client reports receiving the 2nd dose of the Covid vaccine. - Social history:: Smoking status: Patient denies any tobacco usage or history of. Screenin:04 Abuse screen: Denies threats or abuse. Denies injuries from another. Nutritional zb screening: No deficits noted. Tuberculosis screening: No symptoms or risk factors identified. Fall Risk None identified. Assessment: 23:03 Reassessment: See triage assessment. zb 04/03 00:50 Reassessment: reports nausea is still there after medication, Dr. Ramirez notified, em received VO for 12.5 mg Phenergan x 1. 01:20 Reassessment: finished drinking PO contrast, provider notified. em 02:20 Reassessment: Patient appears in no apparent distress at this time. Patient and/or em family updated on plan of care and expected duration. Pain level reassessed. Patient is alert, oriented x 3, equal unlabored respirations, skin warm/dry/pink. Patient states feeling better. 04:15 Reassessment: pt request something for pain, rates pain 8/10, Dr. Ramirez notified, em received VO for 25 mcg fentanyl IVP x 1, Dr. Ramirez aware of pt VS. Vital Signs: 04/02 22:56 BP 94 / 48; Pulse 96; Resp 20; Temp 99.9; Pulse Ox 88% on R/A; Weight 148 kg; Height 5 zb ft. 5 in. (165.10 cm); Pain 8/10; 23:15 BP 108 / 34; Pulse 95; Resp 23; Pulse Ox 94% on 2 lpm NC; zb 0704 02:24 BP 97 / 48; Pulse 93; Resp 22; Pulse Ox 95% on 2 lpm NC; em 04:02 BP 102 / 48; Pulse 97; Resp 24; Pulse Ox 94% on 2 lpm NC; em 04:33 Temp 98.2(O); em 05:08 BP 106 / 38; Pulse 89; Resp 18; Pulse Ox 94% on 2 lpm NC; em 04/02 22:56 Body Mass Index 54.30 (148.00 kg, 165.10 cm) zb ED Course: 04/02 22:47 Patient arrived in ED. cf2 22:49 Pato Ramirez MD is Attending Physician. pkl 22:55 Poppy Hand RN is Primary Nurse. zb 23:00 Triage completed. zb 23:04 Patient has correct armband on for positive identification. Pulse ox on. NIBP on. Door zb closed. Noise minimized. 04/03 02:49 Abdomen In Process Unspecified. EDMS 04:02 Initiated transfer at [facility] with Belle Zimmerman. Call was connected with Dr. Ramirez tt3 for further consultation. 04:23 Belle Zimmerman called back and stated it may end up being and ED to ED transfer. Asked tt3 about symptoms, covid vaccine, etc. Informed her that pt has had both doses of the covid vaccine although the pt was swabbed in the ED. Stated she would check and see how [facility] wanted to proceed (wait for swab vs try to get a copy of covid vaccine record). 04:47 Spoke with pts regarding her covid card. Stated he would bring it up. tt3 04:49 Updated Belle Zimmerman on the situation and informed her that the pts would be tt3 bringing up the pts covid vaccine card so we could make a copy for the pts chart. Was instructed to call back and fax a copy of the covid vaccine card to Belle at - Fax:; - to call Belle back. 05:15 Updated Zulema Castellano at [facility] transfer center that the pts covid swab resulted tt3 negative and that we have a copy of the covid vaccine card. Stated she would pass the information on to Belle Erasmo. 05:33 Belle Zimmerman called back and gave an update and stated she is still trying to get in tt3 touch with the surgical rustic terra[employer] setter. Stated once she got connected with them, she would call back. 05:36 Belle called back with their Surgical Metal Cleaner Dr. Beckman to speak with Dr. Ramirez tt3 regarding the transfer request. Call was connected to Dr. Ramirez. 05:45 Belle Zimmerman called back with admin approval. The pt is going to [facility] tt3 to [facility] Bed 18. The accepting physician is Valentin Wen. Dr. Beckman accepted at 05:42. Nurse to call report to [phone]. 06:02 Called [facility] to see if they were able to transfer pt but got no answer. tt3 06:04 Called [facility] to see if they would be able to transfer pt. ETA of 35-40 tt3 minutes. Information passed on to Mikhail Goodrich RN, Charge Nurse. Administered Medications: 00:03 Drug: NS 0.9% 1000 ml Route: IV; Rate: 1000 ml; Site: right antecubital; zb 00:03 Drug: NS 0.9% 1000 ml Route: IV; Rate: 125 ml/hr; Site: right antecubital; zb 00:03 Drug: Zofran (Ondansetron) 4 mg Route: IVP; Site: right antecubital; zb 00:50 Follow up: Response: No adverse reaction em 00:58 Drug: Phenergan (promethazine) 12.5 mg Route: IVP; Site: right antecubital; em 01:20 Follow up: Response: No adverse reaction; Marked relief of symptoms; Nausea is decreasedem 04:03 Drug: Flagyl (metroNIDAZOLE) 500 mg Volume: 100 ml; Route: IVPB; Rate: 200 ml/hr; em Infused Over: 30 mins; Site: right antecubital; 04:20 Drug: fentaNYL (PF) 25 mcg Route: IVP; Site: right antecubital; em 05:52 Drug: Clindamycin 600 mg Route: IVPB; Infused Over: 30 mins; Site: right antecubital; ak2 Outcome: 05:49 ER care complete, transfer ordered by MD. antunez 07:47 Patient left the ED. ll1 Signatures: Dispatcher [employer] Pato San MD MD pkl Munoz, Edgar RN RN em Deacon Morrison 2 Kandace Ledezma RN RN 1 Carlos Davies3 Poppy Hand RN RN zb Kapolka, Anthony ak2 Corrections: (The following items were deleted from the chart) 05:48 05:36 Belle called back with their Surgical Metal Cleaner Dr. Denton to speak with Dr. Ramirez tt3 regarding the transfer request. Call was connected to Dr. Ramirez. tt3
[2021-04-03] MEDS ORDERED: CLINDAMYCIN 600MG/D5W 600 MG/50 ML BAG IV ONE (06:12)
[2021-04-03 07:56] VITALS: O2SAT 94
[2021-04-03 07:57] VITALS: TEMP 98.2
[2021-04-03 07:59] VITALS: BP 106/38
--- NOTE | 2021-04-03 14:24 | RAD REPORT ---
EXAM DESCRIPTION: CT - Abdomen Pelvis Wo Contrast - 04/03/2021 6:42 am ADDENDUM #1 THIS REPORT CONTAINS FINDINGS THAT MAY BE CRITICAL TO PATIENT CARE: The findings were verbally discus sed via telephone conference with Dr. Pato Ramirez by Dr. aMrkus Cervantes on 04/03/2021 3:46 AM CDT .The results were acknowledged and understood. Electronically signed by: Markus Cervantes MD 04/03/2021 4:10 AM CDT End of Addendum EXAM DESCRIPTION: CT Abdomen and Pelvis Without Intravenous Contrast CLINICAL HISTORY: The patient is 66 years old and is Female; ABD PAIN TECHNIQUE: Axial computed tomography images of the abdomen and pelvis without intravenous contrast. Sagittal and coronal reformatted images were created and reviewed. This CT exam was performed usi ng one or more of the following dose reduction techniques: automated exposure control, adjustment o f the mA and/or kV according to patient size, and/or use of iterative reconstruction technique. COMPARISON: No relevant prior studies available. FINDINGS: Lung bases: Unremarkable. No mass. No consolidation. ABDOMEN: Liver: Hepatomegaly with diffuse hepatic steatosis. Gallbladder and bile ducts: Gallbladder is surgically absent. No ductal dilation. Pancreas: Unremarkable. No ductal dilation. Spleen: Unremarkable. No splenomegaly. Adrenals: Unremarkable. No mass. Kidneys and ureters: The kidneys are severely atrophic. No obstructing stones. No hydronephrosis. Stomach and bowel: Scattered colonic diverticula. There is bowel wall thickening and adjacent fat stranding involving the proximal transverse colon. No obstruction. PELVIS: Appendix: No findings to suggest acute appendicitis. Bladder: Bladder is collapsed. No stones. Reproductive: Uterus is not seen. ABDOMEN and PELVIS: Intraperitoneal space: There is free air and fluid/stranding within the anterior right abdomen co nsistent with perforation. Bones/joints: Disc space narrowing with degenerative endplate changes at L4-5 and L5-S1. Mild anterolisthesis of L4 on L5. No acute fracture. No dislocation. Soft tissues: There is subcutaneous fat stranding along the anterior abdominal wall. Vasculature: Scattered atherosclerotic vascular calcifications. No abdominal aortic aneurysm. Lymph nodes: Unremarkable. No enlarged lymph nodes. IMPRESSION: 1. Scattered colonic diverticula. There is bowel wall thickening and adjacent fat stra nding involving the proximal transverse colon. Findings are consistent with diverticulitis versus c olitis. 2. There is free air and fluid/stranding within the anterior right abdomen consistent with perforat ion. Electronically signed by: Markus Cervantes MD 04/03/2021 3:44 AM CDT Due to temporary technical issues with the PACS/Fluency reporting system, reports are being signed by the in house radiologists without review as a courtesy to insure prompt reporting. The interpreting radiologist is fully responsible for the content of the report.
== END 2021-04-03 07:47 | disposition short-term general hospital (02) ==
LOC: ER 22:35
DX: K57.20 Diverticulitis of large intestine with perforation and abscess without bleeding (principal); A41.9 Sepsis, unspecified organism; E11.22 Type 2 diabetes mellitus with diabetic chronic kidney disease; I12.0 Hypertensive chronic kidney disease with stage 5 chronic kidney disease or end stage renal disease; N18.6 End stage renal disease; E03.9 Hypothyroidism, unspecified; Z99.2 Dependence on renal dialysis; Z79.4 Long term (current) use of insulin; Z79.82 Long term (current) use of aspirin; Z88.0 Allergy status to penicillin; Z88.1 Allergy status to other antibiotic agents; Z20.822 Contact with and (suspected) exposure to COVID-19; Z91.041 Radiographic dye allergy status
CPT/HCPCS: 36415; 74176; 80048; 80076; 83605; 83690; 85025; 96374; 96375; 99284; J2550; J3010; U0003